=== PATIENT | female | born 1995 | race Caucasian/White ===

== ENCOUNTER 2016-11-05 15:16 | Observation (INO) | payer BC ==
[~2016-11-05] VITALS: Ht 170.2 cm; Wt 74.1 kg
[~2016-11-05 15:16] MED LIST: ENDOCET 5-3251 EACH PO; IBUPROFEN800 MG PO; PRENATAL TABLE1 EAC3 PO
[2016-11-05 15:57] LABS: EOSINOPHIL (%) 0.8 % (0-5); EOSINOPHIL COUNT 0.1 K/uL (0-0.3); HEMATOCRIT 39.2 % (36.0-46.0); IMMATURE GRANULOCYTE (%) 0.2 % (0.0-0.7); IMMATURE GRANULOCYTE COUNT 0.2 K/uL; MCH 29.6 PG (29.0-34.0); MCHC 35.5 G/DL (30.0-36.0); MCV 83.6 FL (83-99); MEAN PLAT.VOLUME 11.8 uM^3 (9.5-12.4); MONOCYTE (%) 5.2 % (3-12); MONOCYTE COUNT 0.6 K/uL (0-0.8); NEUTROPHIL (%) 75.7 % (45-76); NEUTROPHIL COUNT 8.6 K/uL (1.8-6.4); PLATELET COUNT 177 K/uL (156-360); RBC DIS.WIDTH-CV 13.3 % (11.8-14.6); RBC DIS.WIDTH-SD 39.8 % (39-53); RED BLOOD COUNT 4.69 M/uL (3.80-5.20); WHITE BLOOD COUNT 11.3 K/uL (4.1-10.2)
[2016-11-05 16:08] LABS: CHLORIDE 106 mEq/L (99-109); POTASSIUM 3.6 mEq/L (3.7-5.4); SODIUM 138 mEq/L (136-147)
[2016-11-05 16:10] LABS: GLUCOSE 106 mg/dL (70-99)
[2016-11-05 16:11] LABS: ANION GAP 10 MEQ/L (2-14)
[2016-11-05 16:14] LABS: GFR ESTIMATE (CALCULATED) > 59 mL/min/; UREA NITROGEN (BUN) 9 mg/dL (9-23)
[2016-11-05 16:49] LABS: QUANTITATIVE HCG 94542.6 MIU/ML
[2016-11-05 21:17] LABS: EOSINOPHIL (%) 0.5 % (0-5); EOSINOPHIL COUNT 0.1 K/uL (0-0.3); HEMATOCRIT 34.7 % (36.0-46.0); IMMATURE GRANULOCYTE (%) 0.2 % (0.0-0.7); IMMATURE GRANULOCYTE COUNT 0.2 K/uL; LYMPHOCYTE COUNT 2.1 K/uL (1.0-2.8); MCHC 34.9 G/DL (30.0-36.0); MCV 83.2 FL (83-99); MEAN PLAT.VOLUME 11.8 uM^3 (9.5-12.4); MONOCYTE (%) 4.5 % (3-12); MONOCYTE COUNT 0.5 K/uL (0-0.8); NEUTROPHIL (%) 74.5 % (45-76); NEUTROPHIL COUNT 7.8 K/uL (1.8-6.4); PLATELET COUNT 175 K/uL (156-360); RBC DIS.WIDTH-CV 13.4 % (11.8-14.6); RBC DIS.WIDTH-SD 39.4 % (39-53); RED BLOOD COUNT 4.17 M/uL (3.80-5.20); WHITE BLOOD COUNT 10.4 K/uL (4.1-10.2)
[2016-11-05 21:50] VITALS: BP 112/72
[2016-11-06 01:01] VITALS: BP 98/52
[2016-11-06 03:00] VITALS: BP 101/56
[2016-11-06 07:10] VITALS: BP 98/55
== END 2016-11-06 11:05 | disposition home or self-care (01) ==
LOC: EME 15:16 → EDOF 19:56 → 2EAST 21:11
PROVIDERS: Obstetrics & Gynecology; Physician Assistant
DX: O46.91 Antepartum hemorrhage, unspecified, first trimester (principal); O43.891 Other placental disorders, first trimester; Z3A.11 11 weeks gestation of pregnancy
CPT/HCPCS: 76801; 80048; 83030; 84702; 85025; 85025 91; 86850; 86900; 86901; 93005; 99281; 99285; G0378; J2790; J7030; J7120

== ENCOUNTER → 2017-03-08 | Outpatient (CLI) | payer BC ==
[~2017-03-08] VITALS: Ht 172.7 cm; Wt 86.0 kg
[2017-03-08 08:51] VITALS: BP 119/61
== END | disposition home or self-care (01) ==
LOC: IVINF 08:30
DX: Z31.82 Encounter for Rh incompatibility status (principal); Z3A.28 28 weeks gestation of pregnancy; Z88.0 Allergy status to penicillin
CPT/HCPCS: 96372; J2790

== ENCOUNTER 2017-03-31 09:03 | Outpatient (CLI) | payer BC ==
[~2017-03-31] VITALS: Ht 170.2 cm; Wt 89.0 kg
[2017-03-31 09:26] VITALS: BP 123/75
== END 2017-03-31 11:20 | disposition home or self-care (01) ==
LOC: LDRP-OP 09:03 → 2WEST 09:04 → LDRP-OP 06-27 12:13
DX: O76 Abnormality in fetal heart rate and rhythm complicating labor and delivery (principal); Z3A.31 31 weeks gestation of pregnancy
CPT/HCPCS: 59025; G0378

== ENCOUNTER 2017-04-07 15:18 | Outpatient (CLI) | payer BC ==
[~2017-04-07] VITALS: Ht 170.2 cm; Wt 90.7 kg
[2017-04-07 15:42] VITALS: BP 118/65
[2017-04-07] MEDS ORDERED: DIGITEK250 MC2 PO (15:47)
[2017-04-07 22:18] VITALS: BP 120/68
[2017-04-08 06:24] VITALS: BP 108/63
[2017-04-08 11:32] VITALS: BP 114/68
== END 2017-04-08 12:58 | disposition home or self-care (01) ==
LOC: LDRP-OP 15:18 → 2WEST 15:19 → LDRP-OP 06-11 11:38
DX: O76 Abnormality in fetal heart rate and rhythm complicating labor and delivery (principal); Z3A.32 32 weeks gestation of pregnancy
CPT/HCPCS: 59025; 76805; 76818; G0378

== ENCOUNTER 2017-04-30 00:33 | Outpatient (CLI) | payer BC ==
[~2017-04-30] VITALS: Ht 170.2 cm; Wt 93.4 kg
[~2017-04-30 00:33] MED LIST changes: +DIGITEK250 MC2 PO
[2017-04-30 00:57] VITALS: BP 121/70
[2017-04-30] MEDS ORDERED: FLECAINIDE ACE150 MG PO (01:29)
[2017-04-30 01:33] VITALS: BP 124/75
[2017-04-30 04:42] VITALS: BP 117/72
== END 2017-04-30 05:30 | disposition home or self-care (01) ==
LOC: LDRP-OP 00:33 → 2WEST 00:34 → LDRP-OP 06-24 13:25
DX: O47.03 False labor before 37 completed weeks of gestation, third trimester (principal); Z3A.36 36 weeks gestation of pregnancy
CPT/HCPCS: 59025; 87081; G0378

== ENCOUNTER 2017-05-19 03:06 | Inpatient (IN) | payer BC ==
[2017-05-19] VITALS (11 sets, daily range): BP systolic 121–140; BP diastolic 61–84
[~2017-05-19] VITALS: Ht 170.2 cm; Wt 93.9 kg
[~2017-05-19 03:06] MED LIST changes: +FLECAINIDE ACE150 MG PO
[2017-05-19 04:42] LABS: EOSINOPHIL (%) 0.5 % (0-5); EOSINOPHIL COUNT 0.1 K/uL (0-0.3); HEMATOCRIT 36.6 % (36.0-46.0); IMMATURE GRANULOCYTE (%) 1.5 % (0.0-0.7); IMMATURE GRANULOCYTE COUNT 0.2 K/uL; LYMPHOCYTE COUNT 2.1 K/uL (1.0-2.8); MCH 29.2 PG (29.0-34.0); MCHC 34.4 G/DL (30.0-36.0); MCV 84.7 FL (83-99); MONOCYTE (%) 5.8 % (3-12); MONOCYTE COUNT 0.7 K/uL (0-0.8); NEUTROPHIL (%) 74.9 % (45-76); PLATELET COUNT 128 K/uL (156-360); RBC DIS.WIDTH-CV 12.9 % (11.8-14.6); RBC DIS.WIDTH-SD 39.7 % (39-53); RED BLOOD COUNT 4.32 M/uL (3.80-5.20)
[2017-05-19] MEDS ORDERED: IBUPROFEN800 MG PO (06:42)
[2017-05-20 23:00] VITALS: BP 109/62
[2017-05-21 08:34] VITALS: BP 110/67
== END 2017-05-21 12:11 | disposition home or self-care (01) | DRG 775 ==
LOC: LDRP-OP 03:06 → 2WEST 03:10 → LDRP-OP 06-25 05:35
PROVIDERS: Nurse Practitioner
PROC: 10E0XZZ Delivery of Products of Conception, External Approach (ICD-10-PCS; principal; 2017-05-19)
DX: O76 Abnormality in fetal heart rate and rhythm complicating labor and delivery (principal); Z3A.38 38 weeks gestation of pregnancy; Z37.0 Single live birth
CPT/HCPCS: 83030; 85025; 86850; 86900; 86901; J0595; J2790; J7120

== ENCOUNTER → 2017-11-20 | Outpatient (CLI) | payer BC ==
[~2017-11-20] VITALS: Ht 170.2 cm; Wt 71.2 kg
[~2017-11-20] MED LIST changes: +CINNAMON500 MG PO; +COLACE100 MG PO; +JUNEL FE 1/21 TABLET PO; +PERCOCET 5/31 TABLET PO
== END | disposition home or self-care (01) ==
LOC: AMB 08:37
PROC: 0DJ08ZZ Inspection of Upper Intestinal Tract, Via Natural or Artificial Opening Endoscopic (ICD-10-PCS; principal; 2017-11-20)
DX: R10.13 Epigastric pain (principal); K80.20 Calculus of gallbladder without cholecystitis without obstruction; Z88.0 Allergy status to penicillin
CPT/HCPCS: J3010

== ENCOUNTER 2017-11-23 09:30 | Day surgery (SDC) | payer BC ==
[~2017-11-23] VITALS: Ht 170.2 cm; Wt 71.2 kg
[~2017-11-23 09:30] MED LIST changes: -COLACE100 MG PO; -PERCOCET 5/31 TABLET PO
[2017-11-23 10:52] VITALS: BP 101/62
[2017-11-23] MEDS ORDERED: PERCOCET 5/31 TABLET PO (15:30)
[2017-11-23] MEDS ORDERED: COLACE100 MG PO (15:30)
[2017-11-23 17:15] VITALS: BP 120/67
[2017-11-23 18:10] VITALS: BP 110/64
[2017-11-23 20:22] VITALS: BP 117/65
== END 2017-11-23 20:38 | disposition home or self-care (01) ==
LOC: SDC 09:30
PROC: 0FT44ZZ Resection of Gallbladder, Percutaneous Endoscopic Approach (ICD-10-PCS; principal; 2017-11-23)
DX: K80.10 Calculus of gallbladder with chronic cholecystitis without obstruction (principal); Z88.0 Allergy status to penicillin; Z85.828 Personal history of other malignant neoplasm of skin
CPT/HCPCS: 88304; J0330; J1100; J1170; J1885; J2250; J2405; J3010; Q0175; S0074